=== PATIENT | male | born 1975 | race Caucasian/White ===

== ENCOUNTER → 2016-08-10 | Outpatient (CLI) | payer BC ==
[~2016-08-10] MED LIST: ASPIRIN81 M2 PO; CLARITIN10 M3 PO; FISH OIL WITH1 EACH PO; IBUPROFEN800 MG PO; LIPITOR20 MG PO; LISINOPRIL10 MG PO; LORTAB 5-325 M1 EACH PO; MULTIVITAMINS1 EAC3 PO; NAPROXEN500 M1 PO
--- NOTE | ~2016-08-10 | HM ---
Unit #: [id number] #: [id number] Patient: AC CASTREJON [id number] [facility]. [place], [place] [address] [id number] O MR#: [id number] NAME: AC CASTREJON. : 1975 SEX: M STUDY DATE/TIME: 08/10/2016 UNIT: [facility] [place] ROOM: STUDY DESCRIPTION: Attending Physician: Torrie Love M.D. CARDIOLOGY REPORT EXAM 24-hour Holter monitor. DATE APPLIED 08/10/2016 DATE SCANNED 08/14/[address] [facility] ORDERED BY Torrie Love M.D. REASON FOR STUDY Palpitations. SUMMARY The patient was monitored for 24 hours. A total of 111,759 QRS complexes were analyzed. There were no pauses. The rhythm was sinus. The average heart rate was 79 beats per minute with minimum heart rate 47 beats per minute at 2:35 a.m. Maximum heart rate 203 beats per minute at approximately 5:30 p.m. This appeared to be a SVT run. Supraventricular ectopy: One hundred twenty two isolated beats, 26 couplets, three bigeminal cycles, and 80 runs totalling 606 beats. The fastest run was three beats in duration at 250 beats per minute. The longest run was 23 beats in duration at 106 beats per minute at approximately 10 p.m. The fastest run occurred at approximately 5:30 p.m. approximately 10 beats in duration. Ventricular ectopy: One hundred and thirty six isolated beats, 10 couplets, and 17 bigeminal cycles. There were three runs totaling 12 beats. The fastest run was three beats in duration at 3:30 p.m. The longest run was five beats in duration at 114 beats per minute. It should be noted that these runs were computer identified runs and appeared to be sinus beats with correct evaluation. IMPRESSION Supraventricular tachycardia, asymptomatic. There were no symptoms noted on this study. No significant ventricular ectopy is noted. There were no ventricular ectopic runs. Unit #: [id number] #: [id number] Patient: AC CASTREJON Dictated by... Chris Parr M.D. PATRICIA/shanda TD: 08/15/2016 11:15 JOB #: [id number] CARDIOLOGY REPORT Page 1 of 1 X Chris Parr MD HOLTER MONITOR REPORT
== END | disposition home or self-care (01) ==
LOC: CEKG 11:19
DX: R00.2 Palpitations (principal)
CPT/HCPCS: 93225; 93226

== ENCOUNTER → 2016-09-18 | Day surgery (SDC) | payer BC ==
--- NOTE | ~2016-09-18 | OR ---
Unit #: [id number] #: [id number] Patient: AC CASTREJON [id number] [place], [place] [address] [id number] O MR#: [id number] NAME: AC CASTREJON ROOM: Date of Procedure: 09/18/2016 Admission Date: 09/18/2016 Surgeon: Toi Christian M.D. : 1975 Attending Physician: Toi Christian M.D. Primary Care Physician: Torrie Love M.D. OPERATIVE REPORT PREOPERATIVE DIAGNOSES Post-cervical fusion, degenerative cervical disk disease, neck pain and cervical radiculopathy. POSTOPERATIVE DIAGNOSES Post-cervical fusion, degenerative cervical disk disease, neck pain and cervical radiculopathy. PROCEDURE PERFORMED Cervical epidural steroid injection with intravenous sedation under fluoroscopic guidance for needle localization. HISTORY The patient is a 41-year-old male, status post C4-5 fusion, which helped his neck and upper extremity pain at that point. He still has radicular issues and upper extremity pain. He has not settled with rehabilitative or medical management. Plan is for trial of epidural steroids based on his pathology, symptomatology, and treatment options. DESCRIPTION OF PROCEDURE The patient was placed in a seated position. Standard monitors were applied. Then, 2 mg of Versed were given for sedation and anxiolysis, which were adequate. Vital signs remained stable. Sterile prep and drape then of the cervical area was performed. The skin then at the C6 level was localized with 1% lidocaine. An 18-gauge Hustead needle was then advanced via hanging drop technique and fluoroscopic guidance in toward the epidural space. After confirming proper positioning with fluoroscopy and radiographic contrast, 80 mg of Depo-Medrol and 2 mL of 0.25% bupivacaine were deposited. The patient tolerated the procedure otherwise well and was discharged to the recovery room in stable condition. Dictated by... Raciel JamesP/jeml TD: 09/18/2016 08:59 JOB #: [id number] Unit #: [id number] #: [id number] Patient: AC CASTREJON OPERATIVE REPORT Page 1 of 1 X Toi Christian MD X PROCEDURE OPERATIVE NOTE
== END | disposition home or self-care (01) ==
LOC: CCSC 07:00
DX: M50.10 Cervical disc disorder with radiculopathy, unspecified cervical region (principal); I10 Essential (primary) hypertension; F41.9 Anxiety disorder, unspecified; Z98.1 Arthrodesis status
CPT/HCPCS: J1040; J2250

== ENCOUNTER → 2016-10-02 | Day surgery (SDC) | payer BC ==
--- NOTE | ~2016-10-02 | OR ---
Unit #: [id number] #: [id number] Patient: AC CASTREJON [id number] [facility]. [place], [place] [address] [id number] O MR#: [id number] NAME: AC CASTREJON ROOM: Date of Procedure: 10/02/2016 Admission Date: 10/02/2016 Surgeon: Toi Christian M.D. : 1975 Attending Physician: Toi Christian M.D. Primary Care Physician: Torrie Love M.D. OPERATIVE REPORT JOB NOTE: CC: [facility] PREOPERATIVE DIAGNOSES Neck pain, cervical radiculopathy, degenerative cervical disk disease, post-cervical fusion, cervical spinal stenosis. POSTOPERATIVE DIAGNOSES Neck pain, cervical radiculopathy, degenerative cervical disk disease, post-cervical fusion, cervical spinal stenosis. PROCEDURE PERFORMED Cervical epidural steroid injection with intravenous sedation and fluoroscopic guidance for needle localization. INDICATIONS FOR PROCEDURE The patient is a 41-year-old male with neck and intermittent left upper extremity pain. He is status post C5-C6 fusion. He has degenerative disk disease from C3 through C7 with moderate cervical spinal stenosis. He has failed to settle with conservative measures. Plan is for trial of epidural steroids, initially was done 2 weeks ago resulted in some improvement in his neck pain and is not well maintained. We will try repeat injection today at a level closer to the fusion to see if that works better. DESCRIPTION OF PROCEDURE The patient was placed in a seated position. Standard monitors were applied. 2 mg of Versed were given for sedation and anxiolysis, which were adequate. Vital signs remained stable. Sterile prep and drape then of the cervical area was performed. The skin then at the C5 level was localized with 1% lidocaine. An 18-gauge Funinhandtead needle was then advanced via hanging drop technique and fluoroscopic guidance in toward the epidural space. The patient did not complain of pain or paresthesia during needle advancement. After confirming proper positioning with fluoroscopy and radiographic contrast, 80 mg of Depo-Medrol and 2 mL of 0.25% bupivacaine were deposited. The patient tolerated the procedure otherwise well and was discharged to the recovery room in stable condition. Dictated by... Toi Christian M.D. Unit #: [id number] #: [id number] Patient: AC CASTREJON Rosa PIERCE/monique TD: 10/03/2016 00:55 JOB #: [id number] OPERATIVE REPORT Page 1 of 1 X Toi Christian MD X PROCEDURE OPERATIVE NOTE
== END | disposition home or self-care (01) ==
LOC: CCSC 07:25
DX: M50.11 Cervical disc disorder with radiculopathy, high cervical region (principal); M50.121 Cervical disc disorder at C4-C5 level with radiculopathy; M50.122 Cervical disc disorder at C5-C6 level with radiculopathy; M50.123 Cervical disc disorder at C6-C7 level with radiculopathy; M48.02 Spinal stenosis, cervical region; I10 Essential (primary) hypertension; Z79.82 Long term (current) use of aspirin; Z79.1 Long term (current) use of non-steroidal anti-inflammatories (NSAID); Z79.891 Long term (current) use of opiate analgesic; Z79.899 Other long term (current) drug therapy; Z98.1 Arthrodesis status
CPT/HCPCS: J1040; J2250

== ENCOUNTER → 2016-10-16 | Day surgery (SDC) | payer BC ==
--- NOTE | ~2016-10-16 | OR ---
Unit #: [id number] #: [id number] Patient: AC CASTREJON [id number] [facility]. [place], [place] [address] [id number] O MR#: [id number] NAME: AC CASTREJON ROOM: Date of Procedure: 10/16/2016 Admission Date: 10/16/2016 Surgeon: Toi Christian M.D. : 1975 Attending Physician: Toi Christian M.D. Primary Care Physician: Torrie Love M.D. PROCEDURE OPERATIVE NOTE PREOPERATIVE DIAGNOSIS Post cervical fusion, degenerative cervical disc disease, neck pain, cervical radiculopathy. POSTOPERATIVE DIAGNOSIS Post cervical fusion, degenerative cervical disc disease, neck pain, cervical radiculopathy. PROCEDURE PERFORMED Cervical epidural steroid injection with IV sedation, fluoroscopic guidance for needle localization. HISTORY The patient is a 42-year-old male with neck and intermittent left upper extremity pain. He is status post C4-5 fusion with continued neck and left upper extremity pain. Workup did demonstrate degenerative disc disease and mild stenosis, especially above the level of the fusion and some right neural foraminal stenosis at multiple levels. Failing conservative treatment, decision was made to give the patient a trial of epidural steroids. The first two injections helped to mostly resolve the left upper extremity pain. The neck pain has improved significantly initially following the injections but then gets returned towards baseline but not quite at the baseline. (1) response, his pathology and symptomatology, we will proceed with a final injection at this point. The first injection was done below the level of the fusion, the second right at the C4-5 level. We will do this at C3-4 to see if it gives better relief. DESCRIPTION OF PROCEDURE The patient was placed in the seated position. Standard monitors were applied and 2 mg of Versed was given sedation and anxiolysis, which were adequate. Vital signs remained stable. A sterile prep and drape of the cervical area was performed. The skin at the C3-4 level was localized with 1% lidocaine. An 18-gauge Innovent Biologicstead needle was then advanced via hang drop technique and fluoroscopic guidance in toward the epidural space. The patient did not complain of pain or paresthesia during needle advancement. After confirming proper positioning with fluoroscopy and radiographic contrast, 80 mg of Depo-Medrol and 2 mL of 0.25% bupivacaine were deposited. The patient tolerated the procedure otherwise well and was discharged to the recovery room in stable condition. Unit #: [id number] #: [id number] Patient: AC CASTREJON Dictated by... Raciel James/remy TD: 10/16/2016 08:35 JOB #: [id number] PROCEDURE OPERATIVE NOTE Page 1 of 1 X Toi Christian MD X PROCEDURE OPERATIVE NOTE
== END | disposition home or self-care (01) ==
LOC: CCSC 07:00
DX: M50.10 Cervical disc disorder with radiculopathy, unspecified cervical region (principal); M48.02 Spinal stenosis, cervical region; M99.71 Connective tissue and disc stenosis of intervertebral foramina of cervical region; I10 Essential (primary) hypertension; Z79.82 Long term (current) use of aspirin; Z79.1 Long term (current) use of non-steroidal anti-inflammatories (NSAID); Z79.891 Long term (current) use of opiate analgesic; Z79.899 Other long term (current) drug therapy; Z98.1 Arthrodesis status
CPT/HCPCS: J1040; J2250